=== PATIENT | female | born 2000 | race Caucasian/White ===

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

== ENCOUNTER 2018-04-21 18:03 | Emergency (ER) | payer MEDICAID ==
--- NOTE | 2018-04-21 18:38 | EDPHY ---
H & P Stated Complaint: Lac to L thumb Time Seen by Provider: 04/21/18 18:26 HPI/ROS: CHIEF COMPLAINT: Laceration HISTORY OF PRESENT ILLNESS: The patient is a 17-year-old female who was trying to prepare food when she accidentally cut the very tip of her left thumb. She has an avulsion type injury over the thumb pad. It is very small. She denies other injuries. This happened just prior to arrival. Severity: Mild Modifying factors: None REVIEW OF SYSTEMS: Constitutional: denies: chills, fever, recent illness, recent injury EENTM: denies: blurred vision, double vision, nose congestion Respiratory: denies: cough, shortness of breath Cardiac: denies: chest pain, irregular heart rate, lightheadedness, palpitations Gastrointestinal/Abdominal: denies: abdominal pain, diarrhea, nausea, vomiting, blood streaked stools Genitourinary: denies: dysuria, frequency, hematuria, pain Musculoskeletal: denies: joint pain, muscle pain Skin: See HPI Neurological: denies: headache, numbness, paresthesia, tingling, dizziness, weakness Hematologic/Lymphatic: denies: blood clots, easy bleeding, easy bruising Immunologic/allergic: denies: HIV/AIDS, transplant 10 systems reviewed and negative except as noted EXAM: GENERAL: Well-appearing, well-nourished and in no acute distress. HEAD: Atraumatic, normocephalic. EYES: Pupils equal round and reactive to light, extraocular movements intact, sclera anicteric, conjunctiva are normal. ENT: TMs normal, nares patent, oropharynx clear without exudates. Moist mucous membranes. NECK: Normal range of motion, supple without lymphadenopathy or JVD. LUNGS: Breath sounds clear to auscultation bilaterally and equal. No wheezes rales or rhonchi. HEART: Regular rate and rhythm without murmurs, rubs or gallops. ABDOMEN: Soft, nontender, normoactive bowel sounds. No guarding, no rebound. No masses appreciated. BACK: No CVA tenderness, no spinal tenderness, step-offs or deformities EXTREMITIES: Normal range of motion, no pitting or edema. No clubbing or cyanosis. NEUROLOGICAL: Cranial nerves II through XII grossly intact. Normal speech, normal gait. 5/5 strength, normal movement in all extremities, normal sensation , normal reflexes PSYCH: Normal mood, normal affect. SKIN: Small less than 1 cm avulsion laceration to thumb pad. Source: Patient Exam Limitations: No limitations - Personal History LMP (Females 10-55): 1-7 Days Ago Current Tetanus Diphtheria and Acellular Pertussis (TDAP): Yes - Medical/Surgical History Hx Asthma: Yes Hx Chronic Respiratory Disease: No Hx Diabetes: No Hx Cardiac Disease: No Hx Renal Disease: No Hx Cirrhosis: No Other PMH: healthy - Family History Significant Family History: No pertinent family hx - Social History Smoking Status: Never smoked Alcohol Use: Sober Drug Use: None Constitutional: Initial Vital Signs Temperature (C) 36.8 C 04/21/18 18:23 Heart Rate 68 04/21/18 18:23 Respiratory Rate 16 04/21/18 18:23 Blood Pressure 111/80 04/21/18 18:23 O2 Sat (%) 98 04/21/18 18:23 O2 Delivery Mode Room Air Allergies/Adverse Reactions: Penicillins Allergy (Mild, Verified 04/21/18 18:22) Rash Home Medications: Medication Instructions Recorded NK [No Known Home Meds] 04/21/18 Medical Decision Making Procedures: Procedure: Laceration repair. Verbal consent was obtained from the patient. The 0.5 cm left thumb laceration was anesthetized with 0.5% bupivacaine locally infiltrated. The wound was irrigated copiously according to protocol, draped and explored to its base. It was approximately 2 mm deep. There were no deep structures involved. No tendon , nerve, or vascular injury was identified when explored. No foreign body was identified. The wound was repaired with 5.0 gut, 1 suture, interrupted. The wound repair was simple without wound margin revisement or multiple flap alignment. The procedure was performed by myself. A dressing was then placed with sterile gauze. ED Course/Re-evaluation: We discussed options for treatment. I warned her that the flap of skin will likely . We agreed to tack it down with a stitch to use that as a physiologic Band-Aid until it dries out falls off on its own. She declines further workup or testing. 8:00 p.m. patient tolerated the procedure well. Her wound was cleaned and dressed. We discussed wound care. Differential Diagnosis: Partial list of the Differential diagnosis considered include but were not limited to; laceration, avulsion and although unlikely based on the history and physical exam, I also considered crush injury, fracture, infection. I discussed these differential diagnoses and the plan with the patient as well as the usual and expected course. The patient understands that the diagnosis is provisional and that in medicine we are not always correct and that further workup is often warranted. Usual and customary warnings were given. All of the patient's questions were answered. The patient was instructed to return to the emergency department should the symptoms at all worsen or return, otherwise to followup with the physician as we discussed. Departure - Departure Disposition: Home, Routine, Self-Care Clinical Impression: Laceration Condition: Fair Instructions: Finger Laceration (ED) Additional Instructions: If your stitches do not dissolve in 7 days return to have them removed Referrals: NONE *PRIMARY CARE P,. [Primary Care Provider] - As per Instructions
[2018-04-30 16:18] VITALS: BP 113/70
== END 2018-04-21 20:31 | disposition home or self-care (01) ==
PROC: 0HQGXZZ Repair Left Hand Skin, External Approach (ICD-10-PCS; principal; 2018-04-21)
DX: S61.012A Laceration without foreign body of left thumb without damage to nail, initial encounter (principal); W26.8XXA Contact with other sharp object(s), not elsewhere classified, initial encounter; Y93.G1 Activity, food preparation and clean up; Y99.8 Other external cause status

== ENCOUNTER 2018-08-26 18:07 | Emergency (ER) | payer MEDICAID, OTHER ==
--- NOTE | 2018-08-26 19:25 | EDPHY ---
H & P Stated Complaint: palpitations /weakness/nausea st Time Seen by Provider: 08/26/18 19:16 HPI/ROS: CHIEF COMPLAINT: Palpitations, weakness and nausea HISTORY OF PRESENT ILLNESS: The patient presents the ED for evaluation of palpitations. She reports this is a chronic condition that she has struggled with for the past 4 years. She reports that she typically gets palpitations once a week that resolved with rest. The patient has never been evaluated by Cardiology. The patient does report that she is having some mild left calf tenderness and slight pleuritic chest pain today. She denies any fever or productive cough. The patient denies prior history of PE or DVT. REVIEW OF SYSTEMS: A comprehensive 10 point review of systems is otherwise negative aside from elements mentioned in the history of present illness. Source: Patient Exam Limitations: No limitations - Personal History LMP (Females 10-55): 1-7 Days Ago Current Tetanus Diphtheria and Acellular Pertussis (TDAP): Yes - Medical/Surgical History Hx Asthma: Yes Hx Chronic Respiratory Disease: No Hx Diabetes: No Hx Cardiac Disease: No Hx Renal Disease: No Hx Cirrhosis: No Hx Alcoholism: No Hx HIV/AIDS: No Hx Splenectomy or Spleen Trauma: No Other PMH: healthy - Social History Smoking Status: Never smoked - Physical Exam Exam: General Appearance: Alert, no distress Eyes: Pupils equal and round no pallor or injection ENT, Mouth: Mucous membranes moist Respiratory: There are no retractions, lungs are clear to auscultation Cardiovascular: Regular rate and rhythm Gastrointestinal: Abdomen is soft and nontender, no masses, bowel sounds normal Neurological: A&O, normal motor function, normal sensory exam, normal cranial nerves Skin: Warm and dry, no rashes Musculoskeletal: Neck is supple nontender Extremities: symmetrical, full range of motion Constitutional: Initial Vital Signs Temperature (C) 36.9 C 08/26/18 18:22 Heart Rate 85 08/26/18 18:22 Respiratory Rate 17 08/26/18 18:22 Blood Pressure 118/78 08/26/18 18:22 O2 Sat (%) 96 08/26/18 18:22 O2 Delivery Mode Room Air Allergies/Adverse Reactions: Penicillins Allergy (Mild, Verified 08/26/18 18:21) Rash Home Medications: Medication Instructions Recorded NK [No Known Home Meds] 04/21/18 Medical Decision Making - Diagnostics EKG Interpretation: EKG: Complete interpretation has been separately recorded in the [facility] archive. Summary impression: Sinus rhythm, rate 90, no arrythmia noted, no ischemic changes present ED Course/Re-evaluation: Patient presents to the ED with a 4 year history of intermittent palpitations. The patient reported they have been coming more frequently over the past several months. She denies any precipitating events. She has not had a Holter monitor. She currently is asymptomatic. She has had no palpitations today. Given her complaints of mild dyspnea, pleuritic chest pain and calf pain she was evaluated for the possibility of thromboembolic disease with a D-dimer. She is low risk by Wells criteria and I feel a negative D-dimer adequately excludes this diagnosis. The patient was monitored in the ED without obvious arrhythmia. At this point time the patient will be discharged from the emergency department with customary aftercare instructions and return precautions. The patient will be advised to follow up with Cardiology for consideration of a Holter monitor. Differential Diagnosis: Differential diagnosis considered includes pulmonary embolism, SVT, arrhythmia, dehydration, metabolic derangement - Data Points Laboratory Results: Laboratory Results 08/26/18 19:40 08/26/18 19:40 08/26/18 08/26/18 08/26/18 19:44 19:40 19:40 WBC RBC Hgb Hct MCV MCH MCHC RDW Plt Count MPV Neut % (Auto) Lymph % (Auto) [place] % (Auto) Eos % (Auto) Baso % (Auto) Nucleat RBC Rel Count Absolute Neuts (auto) Absolute Lymphs (auto) Absolute Monos (auto) Absolute Eos (auto) Absolute Basos (auto) Absolute Nucleated RBC Immature Gran % Immature Gran # D-Dimer 0.35 ug/mLFEU ug/mLFEU (0.00-0.50) Sodium 138 mEq/L mEq/L (135-145) Potassium 3.6 mEq/L mEq/L (3.5-5.2) Chloride 102 mEq/L mEq/L (97-110) Carbon Dioxide 26 mEq/l mEq/l (22-31) Anion Gap 10 mEq/L mEq/L (6-14) BUN 17 mg/dL mg/dL (7-23) Creatinine 0.7 mg/dL mg/dL (0.6-1.0) Estimated GFR > 60 Glucose 84 mg/dL mg/dL (70-100) Calcium 8.9 mg/dL mg/dL (8.5-10.4) POC Troponin I 0.01 ng/mL ng/mL (0.00-0.08) 08/26/18 19:40 WBC 16.22 10^3/uL H 10^3/uL (3.80-9.50) RBC 4.88 10^6/uL 10^6/uL (4.18-5.33) Hgb 14.1 g/dL g/dL (12.6-16.3) Hct 42.8 % % (38.0-47.0) MCV 87.7 fL fL (81.5-99.8) MCH 28.9 pg pg (27.9-34.1) MCHC 32.9 g/dL g/dL (32.4-36.7) RDW 12.9 % % (11.5-15.2) Plt Count 241 10^3/uL 10^3/uL (150-400) MPV 11.0 fL fL (8.7-11.7) Neut % (Auto) 73.6 % % (39.3-74.2) Lymph % (Auto) 16.2 % % (15.0-45.0) [place] % (Auto) 8.6 % % (4.5-13.0) Eos % (Auto) 0.9 % % (0.6-7.6) Baso % (Auto) 0.4 % % (0.3-1.7) Nucleat RBC Rel Count 0.0 % % (0.0-0.2) Absolute Neuts (auto) 11.94 10^3/uL H 10^3/uL (1.70-6.50) Absolute Lymphs (auto) 2.63 10^3/uL 10^3/uL (1.00-3.00) Absolute Monos (auto) 1.40 10^3/uL H 10^3/uL (0.30-0.80) Absolute Eos (auto) 0.14 10^3/uL 10^3/uL (0.03-0.40) Absolute Basos (auto) 0.06 10^3/uL 10^3/uL (0.02-0.10) Absolute Nucleated RBC 0.00 10^3/uL 10^3/uL (0-0.01) Immature Gran % 0.3 % % (0.0-1.1) Immature Gran # 0.05 10^3/uL 10^3/uL (0.00-0.10) D-Dimer Sodium Potassium Chloride Carbon Dioxide Anion Gap BUN Creatinine Estimated GFR Glucose Calcium POC Troponin I Point of Care Test Results: Chemistry 08/26/18 19:44 POC Troponin I 0.01 ng/mL ng/mL (0.00-0.08) Departure - Departure Disposition: Home, Routine, Self-Care Clinical Impression: Palpitations Condition: Good Instructions: Heart Palpitations (ED) Additional Instructions: 1. The testing done in the emergency department today demonstrates no significant abnormalities. 2. I do recommend following up with the intake clinician you have been referred to for further evaluation of your intermittent palpitations. 3. Return to the ED for an irregular heart rate which is not stopping. Referrals: Rachel Eli MD [Medical Doctor] - As per Instructions
--- NOTE | 2018-08-26 19:44 | CPEKG ---
Test Reason : OPEN Blood Pressure : / mmHG Vent. Rate : 090 BPM Atrial Rate : 090 BPM P-R Int : 124 ms QRS Dur : 082 ms QT Int : 331 ms P-R-T Axes : 009 075 038 degrees QTc Int : 405 ms Sinus rhythm Confirmed by Sb Kingston ([id number]) on 08/26/2018 7:44:17 PM Referred By: Confirmed By:Sb Kingston
[2018-08-26 19:48] LABS: PLATELET COUNT 241 10^3/uL (150-400)
[2018-08-26 20:44] VITALS: BP 125/79
== END 2018-08-26 20:43 | disposition home or self-care (01) ==
DX: R00.2 Palpitations (principal); R53.1 Weakness; R11.0 Nausea
CPT/HCPCS: 84484-ER